=== PATIENT | male | born 1985 | race Caucasian/White ===

== ENCOUNTER 2017-10-08 07:47 | Emergency (ER) | payer MEDICAID ==
[~2017-10-08] VITALS: Ht 157.5 cm; Wt 63.0 kg
[2017-10-08 08:30] LABS: BASOPHIL % 0.4 % (0-2); PLATELET COUNT 255 x10^3mcL (130-400); RED CELL DISTRIBUTION WIDTH 12.9 % (11.5-14.5)
[2017-10-08 08:42] LABS: ALBUMIN 4.4 g/dL (3.4-5.0); ALKALINE PHOSPHATASE 82 U/L (46-116); ALT/SGPT 38 U/L (16-63); AST/SGOT 24 U/L (15-37); BILIRUBIN TOTAL 0.74 mg/dL (0.20-1.00); CALCIUM 9.3 mg/dL (8.5-10.1); CARBON DIOXIDE 25.2 mmol/L (21-32); CHLORIDE SERUM 91 mmol/L (98-107); CREATININE SERUM 1.1 mg/dL (0.7-1.3); GFR1 > 60 mL/min; GLUCOSE SERUM 129 mg/dL (74-106); POTASSIUM SERUM 3.8 mmol/L (3.5-5.1); TOTAL PROTEIN, SERUM 7.6 g/dL (6.4-8.2); URIC ACID 3.7 mg/dL (3.5-7.2)
[2017-10-08 09:00] LABS: SODIUM SERUM 117 mmol/L (136-145)
[2017-10-08 09:47] LABS: CALCIUM 8.8 mg/dL (8.5-10.1); CARBON DIOXIDE 25.5 mmol/L (21-32); CHLORIDE SERUM 98 mmol/L (98-107); GFR1 > 60 mL/min; GLUCOSE SERUM 120 mg/dL (74-106); POTASSIUM SERUM 4.5 mmol/L (3.5-5.1); SODIUM SERUM 133 mmol/L (136-145)
[2017-10-08 12:13] VITALS: BP 128/78
== END 2017-10-08 12:13 | disposition home or self-care (01) ==
LOC: ED 07:47
PROVIDERS: Emergency Medicine
DX: K59.00 Constipation, unspecified (principal); M54.9 Dorsalgia, unspecified; R11.0 Nausea
CPT/HCPCS: J1885; J2405; J7030